=== PATIENT | female | born 1960 | race Caucasian/White ===

== ENCOUNTER 2022-08-27 07:44 | Day surgery (SDC) | payer OTHER ==
[2022-08-27] MEDS ORDERED: Lactated Ringers 1,000 ML IV SCH (08:45)
[2022-08-27] MEDS ORDERED: Midazolam 1 MG/ML 2 ML SDV ONE (09:51)
[2022-08-27] MEDS ORDERED: fentaNYL 50 MCG/ML SDV ONE (09:52)
[2022-08-27] MEDS ORDERED: Propofol 200 MG/20 ML SDV ONE ×2 (09:52→10:07)
== END 2022-08-27 11:25 | disposition home or self-care (01) ==
LOC: JP.SDS 07:44
PROVIDERS: ATTEND Student in an Organized Health Care Education/Training Program
DX: Z12.11 Encounter for screening for malignant neoplasm of colon (principal); D12.0 Benign neoplasm of cecum; K57.30 Diverticulosis of large intestine without perforation or abscess without bleeding; I10 Essential (primary) hypertension; E78.5 Hyperlipidemia, unspecified; E66.9 Obesity, unspecified; E11.9 Type 2 diabetes mellitus without complications; Z88.8 Allergy status to other drugs, medicaments and biological substances; Z86.010 Personal history of colon polyps
CPT/HCPCS: 88305; J2250; J2704; J3010; J7120

== ENCOUNTER 2024-08-19 06:32 | Day surgery (SDC) | payer OTHER ==
[2024-08-19] MEDS: Morphine 2 MG/ML SYRINGE IVPUSH ONE (07:29)
[2024-08-19] MEDS: Ondansetron 4 MG/2 ML SDV IVPUSH ONE (07:30)
[2024-08-19] MEDS: Sodium Chloride 0.9% 1,000 ML IV ONE (07:30)
[2024-08-19 07:33] LABS: BASOPHILS PERCENT AUTO 0.1 % (0.1-1.3); EOSINOPHILS PERCENT AUTO 0.1 % (0.0-5.4); HEMATOCRIT 38.8 % (34.3-46.0); HEMOGLOBIN 13.1 g/dL (11.2-15.5); IMMATURE GRAN ABSOLUTE AUTO 0.06 K/uL (0.00-0.23); IMMATURE GRAN PERCENT AUTO 0.5 % (0.0-0.7); LYMPHOCYTES ABSOLUTE AUTO 0.93 K/uL (0.8-3.3); LYMPHOCYTES PERCENT AUTO 7.8 % (11.4-47.7); MEAN CORPUSCULAR HEMOGLOBIN 31.6 pg (31.6-35.5); MEAN CORPUSCULAR HGB CONC 33.8 g/dL (31.6-35.5); MEAN CORPUSCULAR VOLUME 93.5 fL (81.4-99.0); MONOCYTES ABSOLUTE AUTO 0.18 K/uL (0.20-0.90); MONOCYTES PERCENT AUTO 1.5 % (3.3-12.6); NEUTROPHILS ABSOLUTE AUTO 10.67 K/uL (1.0-7.6); PLATELET COUNT,PLT 269 K/uL (130-375); RED BLOOD CELL COUNT 4.15 M/uL (3.77-5.24); WHITE BLOOD CELL COUNT,WBC 11.9 K/uL (3.2-11.0)
[2024-08-19 07:45] LABS: BASOPHILS ABSOLUTE AUTO 0.01 K/uL (0.00-0.10); EOSINOPHILS ABSOLUTE AUTO 0.01 K/uL (0.00-0.40)
[2024-08-19 08:00] LABS: LACTIC ACID 2.7 mmol/L (0.4-2.0)
[2024-08-19 08:06] LABS: ALANINE AMINOTRANSFERASE,ALT 51 U/L (12-78); ALBUMIN 3.9 g/dL (3.4-5.0); ALKALINE PHOSPHATASE 108 U/L (46-116); ASPARTATE AMNIOTRANSFERASE,AST 18 U/L (15-37); BILIRUBIN TOTAL 0.6 mg/dL (0.2-1.0); BLOOD UREA NITROGEN,BUN 12 mg/dL (7-18); CALCIUM 9.5 mg/dL (8.5-10.1); CARBON DIOXIDE,CO2 29 mmol/L (21-32); CHLORIDE,CL 101 mmol/L (100-108); CREATININE 0.9 mg/dL (0.6-1.0); EST CRCL DRUG DOSING (CG) 52.24 mL/min; ESTIMATED GFR 71 mL/min (>60); GLUCOSE RANDOM 210 mg/dL (74-106); POTASSIUM,K 3.5 mmol/L (3.6-5.2); PROTEIN TOTAL,TP 7.8 g/dL (6.4-8.2); SODIUM,NA 140 mmol/L (140-148)
[2024-08-19 08:09] LABS: ANION GAP 13.5 mmol/L (5.0-14.0)
[2024-08-19] MEDS: Sodium Chloride 0.9% 10 ML Syringe FLUSH PRN (08:42)
[2024-08-19] MEDS: Sodium Chloride 0.9% 80 ML IV ONE (08:42)
[2024-08-19] MEDS: Iopamidol 612 MG/ML 100 ML Bottle IV PRN (08:43)
[2024-08-19 08:57] LABS: APPEARANCE,URINE CLEAR (CLEAR); BILIRUBIN,URINE NEGATIVE (NEGATIVE); COLOR,URINE YELLOW (YELLOW); GLUCOSE,URINE 250 mg/dL (NEGATIVE); KETONES,URINE 15 mg/dL (NEGATIVE); LEUKOCYTE ESTERASE,URINE NEGATIVE (NEGATIVE); NITRITE,URINE NEGATIVE (NEGATIVE); OCCULT BLOOD,URINE NEGATIVE (NEGATIVE); PH,URINE 7.5 (5.0-8.0); PROTEIN,URINE TRACE mg/dL (NEGATIVE); UROBILINOGEN,URINE 0.2 EU/dL (0.2-1.0)
[2024-08-19 09:04] LABS: AMORPHOUS SEDIMENT,URINE NOT SEEN; BACTERIA,URINE FEW; EPITHELIAL CELLS,URINE FEW; MUCUS,URINE FEW; RBC,URINE 0-5 (0-5); WBC,URINE 0-5 (0-5)
[2024-08-19] MEDS ORDERED: Bupivacaine 0.25%/EPINEPHrine 1:200,000 30 ML SDV ONE (10:40)
[2024-08-19] MEDS: Bupivacaine 0.25%/EPINEPHrine 1:200,000 30 ML SDV ONE (11:11)
[2024-08-19] MEDS ORDERED: fentaNYL 250 MCG/5 ML SDV ONE ×2 (11:17→12:06)
[2024-08-19] MEDS ORDERED: Dexamethasone 4 MG/ML SDV ONE (11:18)
[2024-08-19] MEDS ORDERED: Glycopyrrolate 0.2 MG/ML 5 ML MDV ONE (11:18)
[2024-08-19] MEDS ORDERED: Ondansetron 4 MG/2 ML SDV ONE (11:18)
[2024-08-19] MEDS ORDERED: Rocuronium 50 MG/5 ML Vial ONE (11:18)
[2024-08-19] MEDS ORDERED: Neostigmine Methylsulfate 10 MG/10 ML MDV ONE (11:18)
[2024-08-19] MEDS ORDERED: Propofol 200 MG/20 ML SDV ONE (11:18)
[2024-08-19] MEDS ORDERED: Succinylcholine 200 MG/10 ML MDV ONE (11:18)
[2024-08-19] MEDS ORDERED: Sodium Chloride 0.9% 10 ML ONE (11:23)
[2024-08-19] MEDS ORDERED: ceFAZolin 1 GM Vial ONE (11:23)
[2024-08-19] MEDS ORDERED: Lactated Ringers 1,000 ML ONE ×2 (11:24→12:54)
[2024-08-19] MEDS ORDERED: Labetalol 20 MG/4 ML Syringe ONE (12:13)
[2024-08-19] MEDS ORDERED: Ketorolac 30 MG/ML SDV ONE (13:22)
[2024-08-19] MEDS ORDERED: Sodium Chloride 0.9% 1,000 ML IV SCH (14:30)
[2024-08-19] MEDS: Acetaminophen/oxyCODONE 325-5 MG Tab PO PRN (15:59)
== END 2024-08-19 16:35 | disposition home or self-care (01) ==
LOC: JP.ED 06:32 → JP.SDS 09:54
PROVIDERS: ATTEND Surgery
DX: K80.00 Calculus of gallbladder with acute cholecystitis without obstruction (principal); K83.8 Other specified diseases of biliary tract; K86.89 Other specified diseases of pancreas; E78.00 Pure hypercholesterolemia, unspecified; I10 Essential (primary) hypertension; E11.9 Type 2 diabetes mellitus without complications; Z88.8 Allergy status to other drugs, medicaments and biological substances; Z79.899 Other long term (current) drug therapy; Z79.84 Long term (current) use of oral hypoglycemic drugs
CPT/HCPCS: 00790; 36415; 47563; 74177; 76000; 80053; 81001; 83605; 83690; 85025; 88304; 93005; 93010; 96361; 96374; 96375; 99285; A9270; C1894; J0330; J0690; J1100; J1596; J1885; J1920; J2270; J2405; J2704; J2710; J3010; J7030; J7120; Q9967; J3490